=== PATIENT | female | born 1985 | race Caucasian/White ===

== ENCOUNTER 2018-12-04 05:50 | Day surgery (SDC) | payer OTHER ==
[~2018-12-04] VITALS: Ht 170.2 cm; Wt 93.9 kg
[~2018-12-04 05:50] MED LIST: AZITHROMYCIN250 MG PO; IBUPROFEN600 MG PO; KEFLEX500 MG PO; METHYLPREDNISOLO4 M1 PO; MICROGESTIN1 EAC1 PO; MOTRIN IB200 MG PO; NORCO 5-325 TA1 EACH PO; OXYCODONE HCL5 MG PO; PRENATAL VITAM1 EAC7 PO; PROAIR HFA8.5 GM INH; ZYRTEC10 MG PO
--- NOTE | 2018-12-04 07:53 | NUR ---
12/04/18 0753 Patricia Patton 0743 PT ARRIVED IN PACU SLEEPY WITH NO C/O'S. 0750 AT BEDSIDE TALKING TO PT.
--- NOTE | 2018-12-04 08:34 | NUR ---
HARD COPY PRESCRIPTION GIVEN TO SPOUSE. APPLESAUCE AND ICED WATER GIVEN. CALL LIGHT W/IN REACH. PATIENT DENIES ADD'L NEEDS @ THIS TIME.
--- NOTE | 2018-12-04 09:12 | NUR ---
PT IS AWAKE AND LOOKING AT PHONE. SHE REPORTS MILD CRAMPING, BUT DENIES NEEDING ANYTHING. SHE HAS TOLERATE WATER AND APPLE SAUCE. NO OTHER NEEDS AT THIS TIME.
--- NOTE | 2018-12-04 10:12 | NUR ---
JONATAN 0935: PT IS ASSISTED UP OUT OF BED TO THE BATHROOM. SHE IS ABLE TO VOID 150MLS OF BLOODY URINE. SHE INDICATES THAT SHE WOULD LIKE TO GO HOME AT THIS TIME. SHE IS EDUCATED ON HOW BEST TO DRESS HERSELF AND OPEN HER CURTAIN WHEN SHE IS READY.
--- NOTE | 2018-12-04 10:14 | NUR ---
PT IS GIVEN VERBAL DC INSTRUCTIONS WITH HER PRESENT. PT AND HER VERBALIZE UNDERSTANDING. SHE IS TAKEN TO VEHICLE IN , SHE IS ABLE TO TRANSFER HERSELF FROM TO CAR.
--- NOTE | 2018-12-04 11:24 | NUR ---
PT IS ALERT, ORIENTED AND SUPPORTED BY HER WIL. DIFFICULT TIME FOR BOTH OF THEM, GAVE COMFORT, MADE MYSELF AVAILABLE. PT REQUESTED PRAYER, WILL FOLLOW NEEDED
--- NOTE | 2018-12-14 16:11 | OR ---
[facility] [address] [place], [place] [address] Signed DATE OF OPERATION: 12/04/2018 SURGEON: Stas Amador MD Patient of Dr. Amador. PREOPERATIVE DIAGNOSIS: Missed . POSTOPERATIVE DIAGNOSIS: Missed . PROCEDURE PERFORMED: Suction D and C. ANESTHESIA: General. ESTIMATED BLOOD LOSS: 20 mL. COMPLICATIONS: None. DRAINS: None. FINDINGS: Cervix is soft, thick, and closed. Uterus is soft, approximately 9 weeks size. No adnexal masses. No active vaginal bleeding. There was moderate amount of normal-appearing products of conception within the uterine cavity. DESCRIPTION: The patient was brought into the operating room and placed in supine position. After adequate general anesthesia was obtained, she was placed in a dorsal lithotomy position, prepped, and draped in usual sterile fashion. Weighted speculum was placed in the vagina and the anterior lip of the cervix grasped with an Allis clamp. Uterine cavity was sounded to 10 cm and then cervix easily dilated with Yoruba dilators up to #10 dilator. A #9 curved suction tip was attached to the suction machine and the suction tested. The tip was then easily placed through the cervix into the fundus and scraped Electronically Signed By: STAS AMADOR MD 12/14/18 1611 PATIENT NAME: DENISA HYATT OPERATIVE REPORT DATE OF : 89 REPORT #: [id number] PHYSICIAN: STAS AMADOR MD PCP: RUFINO BEST MD REPORT IS CONFIDENTIAL AND NOT TO BE RELEASED WITHOUT AUTHORIZATION [facility] [address] [place], [place] [address] Signed in 360 degree fashion removing moderate amount of normal-appearing tissue. The normal feel of empty uterus was noted throughout. No additional tissue was removed. The curette was removed. The cervix observed and noted to have good hemostasis. At this point, all instruments were removed from the vagina. The uterus was repalpated, noted to be much smaller and more firm. Cervix was again observed and noted to have minimal bleeding. At this point, the procedure was terminated. The patient tolerated the procedure well and went to recovery room in good condition. Sponge and instrument count was correct at the end of procedure. Uterine curettings were sent to Pathology for identification. Stas Amador MD MJB/MODL /[id number] cc: Rufino Best MD Copies: RUFINO BEST MD ~ Electronically Signed By: STAS AMADOR MD 12/14/18 1611 PATIENT NAME: DEYANIRA HYATTJESSENIA FABIAN OPERATIVE REPORT DATE OF : 89 REPORT #: [id number] PHYSICIAN: STAS AMADOR MD PCP: RUFINO BEST MD REPORT IS CONFIDENTIAL AND NOT TO BE RELEASED WITHOUT AUTHORIZATION
== END 2018-12-04 09:55 | disposition home or self-care (01) ==
LOC: DS 05:50
PROVIDERS: General Practice
PROC: 10D17Z9 Manual Extraction of Products of Conception, Retained, Via Natural or Artificial Opening (ICD-10-PCS; principal; 2018-12-04 06:45)
DX: O02.1 Missed abortion (principal); Z79.899 Other long term (current) drug therapy
CPT/HCPCS: 00952; J1100; J1885; J2250; J2405; J2590; J2704; J3010; J7120

== ENCOUNTER 2020-03-29 15:26 | Emergency (ER) | payer BC ==
[~2020-03-29] VITALS: Ht 170.2 cm; Wt 88.5 kg
--- OUTSIDE RECORDS SUMMARY | ~2020-03-29 | XMS | Encounter Summary ---
Demographics + + + | Address | [address] | | | [place] [address] | + + + | Home Phone | | + + + | Preferred Language | Unknown | + + + | Marital Status | Single | + + + | Mosque Affiliation | Unknown | + + + | Race | Unknown | + + + | Ethnic Group | Unknown | + + + Author + + + | Author | [facility] | | | and [place] | + + + | Organization | [facility] | | | and [place] | + + + | Address | Unknown | + + + | Phone | Unavailable | + + + Support + + +---------+ + | Name | Relationship | Address | Phone | + + +---------+ + | Ko Ding | ECON | Unknown | | + + +---------+ + Care Team Providers + +------+ + | Care Health And Wellness Advisor Name | Role | Phone | + +------+ + PCP | Unavailable | + +------+ + Encounter Details +--------+ + + + + | Date | Type | Department | Care Team | Description | +--------+ + + + + | 06/14/ | Hospital | [facility] | Howie Girard, | | | 2010 | Encounter | MED CTR XRAY [address] | PA-C [address] | | | | | [place] | [facility] [address] [place] | | | | | [place] [address] | [place] [address] | | | | | [phone] | [phone] | | | | | | | | +--------+ + + + + Social History + +-------+ +--------+------+ | Tobacco Use | Types | Packs/Day | Years | Date | | | | | Used | | + +-------+ +--------+------+ | Never Assessed | | | | | + +-------+ +--------+------+ + + + | Sex Assigned at | Date Recorded | | | | + + + | Not on file | | + + + + + + + | Job Start Date | Occupation | Industry | + + + + | Not on file | Not on file | Not on file | + + + + + + + + | Travel History | Travel Start | Travel End | + + + + + + | No recent travel history available. | + + documented as of this encounter Medications at Time of Discharge + + + +---------+ + + | Medication | Sig | Dispensed | Refills | Start | End Date | | | | | | Date | | + + + +---------+ + + | ibuprofen | Take 600 mg by mouth | | 0 | 07/08/20 | | | (ADVIL,MOTRIN) 600 | 3 times daily as | | | 10 | | | MG tablet | needed. | | | | | + + + +---------+ + + documented as of this encounter Plan of Treatment Not on filedocumented as of this encounter Procedures + +--------+ + + + | Procedure Name | Priori | Date/Time | Associated Diagnosis | Comments | | | ty | | | | + +--------+ + + + | MRI KNEE RIGHT WO | | 06/14/2011 | | Results for this | | CONTRAST | | 9:05 AM | | procedure are in the | | | | PDT | | results section. | + +--------+ + + + documented in this encounter Results MRI Knee Right wo Contrast (06/14/2011 9:05 AM PDT) + + | Specimen | + + | | + + + + + | Narrative | Performed At | + + + | [facility] Diagnostic Imaging Department | [facility] | | [address] | [facility] | | RIGHT KNEE, 06/14/2011 | DIA IMG | | CLINICAL HISTORY: RIGHT KNEE PAIN. NO INJURY. COMPARISON: | | | 06/10/2011 right knee radiographs. TECHNIQUE: Multiplanar | | | multisequence MRI imaging of the right knee without contrast. | | | FINDINGS: The anterior and posterior cruciate ligaments are intact | | | and unremarkable. The medial and lateral menisci are normal in | | | signal and morphology. The lateral stabilizing structures are intact | | | and unremarkable. The medial stabilizing structures are intact | | | and unremarkable. The visible portio ns of the quadriceps tendon | | | and the patellar tendon are intact and unremarkable. There is an | | | area of fissuring, near full thickness, in the medial facet of the | | | patellar cartilage. T here is sparing of the trochlear cartilage. | | | There is a suggestion of mild trochlear dysplasia withou t abnormal | | | positioning of the patella at this time. Cartilaginous surfaces in | | | the medial and lateral femorotibial compartments are more normal. | | | There is a small joint effusion. There is no significan t | | | popliteal cyst. Marrow signal is normal. Muscles are without | | | evidence of atrophy or edema. IMPRESSION: 1. HIGH GRADE OR NEAR | | | FULL THICKNESS FISSURING IN THE LATERAL FACET AT THE PATELLAR | | | ARTICULAR SURFACE . 2. SUGGESTION OF MILD TROCHLEAR DYSPLASIA. | | | 3. SMALL JOINT EFFUSION. Dictated Date/Time: 06/14/2011 | | | 10:16 Transcribed Date/Time: 06/14/2011 12:[address] Security: | | | <Electronically Signed by Doroteo Belle MD> 06/14/11 1731 | | + + + + + | Procedure Note | + + | Stanley Jones Conversion - 12/27/2013 3:27 PM [facility] | | Diagnostic Imaging Department [address] | | RIGHT KNEE, 06/14/2011 CLINICAL HISTORY: RIGHT KNEE | | PAIN. NO INJURY. COMPARISON: 06/10/2011 right knee radiographs. TECHNIQUE: | | Multiplanar multisequence MRI imaging of the right knee without contrast. FINDINGS: The | | anterior and posterior cruciate ligaments are intact and unremarkable. The medial and | | lateral menisci are normal in signal and morphology. The lateral stabilizing structures | | are intact and unremarkable. The medial stabilizing structures are intact and | | unremarkable. The visible portions of the quadriceps tendon and the patellar tendon are | | intact and unremarkable. There is an area of fissuring, near full thickness, in the | | medial facet of the patellar cartilage. There is sparing of the trochlear cartilage. | | There is a suggestion of mild trochlear dysplasia without abnormal positioning of the | | patella at this time. Cartilaginous surfaces in the medial and lateral femorotibial | | compartments are more normal. There is a small joint effusion. There is no significant | | popliteal cyst. Marrow signal is normal. Muscles are without evidence of atrophy or | | edema. IMPRESSION: 1. HIGH GRADE OR NEAR FULL THICKNESS FISSURING IN THE LATERAL FACET | | AT THE PATELLAR ARTICULAR SURFACE. 2. SUGGESTION OF MILD TROCHLEAR DYSPLASIA. 3. SMALL | | JOINT EFFUSION. Dictated Date/Time: 06/14/2011 10:16Transcribed Date/Time: 06/14/2011 | | 12:58Transcriptionist: <Electronically Signed by Doroteo Belle MD> 06/14/11 | | 1731 | |here is sparing of the trochlear cartilage. There is a suggestion of mild trochlear dyspla rolando withou | |t abnormal positioning of the patella at this time. Cartilaginous surfaces in the medial a nd lateral | | femorotibial compartments are more normal. There is a small joint effusion. There is no significan | |t popliteal cyst. Marrow signal is normal. Muscles are without evidence of atrophy or celeste ma. | | | |IMPRESSION: | |1. HIGH GRADE OR NEAR FULL THICKNESS FISSURING IN THE LATERAL FACET AT THE PATELLAR ARTICUL AR SURFACE | |. | | | |2. SUGGESTION OF MILD TROCHLEAR DYSPLASIA. | | | |3. SMALL JOINT EFFUSION. | | | |Dictated Date/Time: 06/14/2011 10:16 | |Transcribed Date/Time: 06/14/2011 12:58 | |Master Deputy [address] Court Security: | |<Electronically Signed by Doroteo Belle MD> 06/14/11 1731 | + + + +---------+ + + | Performing | Address | City/State/Zipcode | Phone Number | | Organization | | | | + +---------+ + + | [place] | | | | | [facility] [place] | | | | + +---------+ + + documented in this encounter Visit Diagnoses Not on filedocumented in this encounter"
--- OUTSIDE RECORDS SUMMARY | ~2020-03-29 | XMS | Encounter Summary ---
Demographics + + + | Address | [address] | | | [place] [address] | + + + | Home Phone | | + + + | Preferred Language | Unknown | + + + | Marital Status | Single | + + + | Tenriism Affiliation | Unknown | + + + | Race | Unknown | + + + | Ethnic Group | Unknown | + + + Author + + + | Author | [facility] | | | and [place] | + + + | Organization | [facility] | | | and [place] | [...] Team Providers + +------+ + | Care Parts Sales Advisor Name | Role | Phone | + +------+ + PCP | Unavailable | + +------+ + Encounter Details +--------+ + + + + | Date | Type | Department | Care Team | Description | +--------+ + + + + | 10/25/ | Hospital | [facility] | [place] | | | 2010 | Encounter | MED CTR LABORATORY | MD [address] [facility] | | | | | [address] | [place] | | | | | [place] | [id number] | | | | | [address] | | | | | | [phone] | | | +--------+ + + + [...] | + +--------+ + + + | CBC WITH | Routin | 10/25/2011 | | Results for this | | DIFFERENTIAL | e | 1:27 PM | | procedure are in the | | | | PST | | results section. | + +--------+ + + + | COMPREHENSIVE | Routin | 10/25/2011 | | Results for this | | METABOLIC PANEL | e | 1:27 PM | | procedure are in the | | | | PST | | results section. | + +--------+ + + + | URINALYSIS, REFLEX | Routin | 10/25/2011 | | Results for this | | MICROSCOPIC AND/OR | e | 1:24 PM | | procedure are in the | | CULTURE | | PST | | results section. | + +--------+ + + + documented in this encounter Results Comprehensive Metabolic Panel (10/25/2011 1:27 PM PST) + + + + + + | Component | Value | Ref Range | Performed | Pathologist | | | | | At | Signature | + + + + + + | Glucose | 84 | 70 - 109 mg/dL | [facility] | | | | | | [facility] | | | | | [facility] | | | | | | C[facility] - | | | | | | LABORATORY | | + + + + + + | Calcium | 9.3 | 8.3 - 10.5 | [facility] | | | | | mg/dL | [facility] | | | | | | [facility] | | | | | | CENTER - | | | | | | LABORATORY | | + + + + + + | Alkaline | 55 | 40 - 110 IU/L | [facility] | | | Phosphatase | | | [facility] | | | | | | [facility] | | | | | | CENTER - | | | | | | LABORATORY | | + + + + + + | AST | 23 | 10 - 42 IU/L | [facility] | | | | | | [facility] | | | | | | [facility] | | | | | | CENTER - | | | | | | LABORATORY | | + + + + + + | ALT | 16 | 6 - 45 IU/L | [facility] | | | | | | [facility] | | | | | | [facility]ICAL | | | | | | CENTER - | | | | | | LABORATORY | | + + + + + + | Bilirubin | 0.8 | 0.2 - 1.0 mg/dL | [facility] | | | Total | | | [facility] | | | | | | MEDICAL | | | | | | CENTER - | | | | | | LABORATORY | | + + + + + + | Total | 6.7 | 6.0 - 7.8 gm/dL | [facility] | | | Protein | | | [facility] | | | | | | MEDICAL | | | | | | CENTER - | | | | | | LABORATORY | | + + + + + + | Albumin | 4.3 | 3.2 - 5.0 gm/dL | [facility] | | | | | | [facility] | | | | | | [facility]ICAL | | | | | | CENTER - | | | | | | LABORATORY | | + + + + + + | BUN | 10 | 7 - 18 mg/dL | [facility] | | | | | | [facility] | | | | | | [facility] | | | | | | CENTER - | | | | | | LABORATORY | | + + + + + + | Creatinine | 0.88 | 0.60 - 1.30 | [facility] | | | | | mg/dL | [facility] | | | | | | MEDICAL | | | | | | CENTER - | | | | | | LABORATORY | | + + + + + + | Estimated | >60Comment: For | >60 mL/min/A | [facility] | | | GFR | -Americans, | | [facility] | | | | please multiply the | | MEDICAL | | | | result by 1.210 | | CENTER - | | | | This is an estimated | | LABORATORY | | | | GFR and is based on a | | | | | | standard adult | | | | | | body mass (A=1.73m2) and | | | | | | serum creatinine | | | | + + + + + + | BUN/Creatin | 11.4 (L) | 12 - 20 | [facility] | | | ine Ratio | | | [facility] | | | | | | MEDICAL | | | | | | CENTER - | | | | | | LABORATORY | | + + + + + + | Na | 137 | 136 - 149 mEq/L | [facility] | | | | | | [facility] | | | | | | [facility]ICAL | | | | | | CENTER - | | | | | | LABORATORY | | + + + + + + | K | 4.0 | 3.5 - 5.1 mEq/l | [facility] | | | | | | [facility] | | | | | | [facility]ICAL | | | | | | CENTER - | | | | | | LABORATORY | | + + + + + + | Cl | 107 | 98 - 109 mEq/l | [facility] | | | | | | [facility] | | | | | | [facility] | | | | | | CENTER - | | | | | | LABORATORY | | + + + + + + | CO2 | 24 | 24 - 31 mEq/L | [facility] | | | | | | [facility] | | | | | | [facility]ICAL | | | | | | CENTER - | | | | | | LABORATORY | | + + + + + + | Anion Gap | 10.0 | 6.0 - 17.0 | [facility] | | | | | | [facility] | | | | | | [facility]ICAL | | | | | | CENTER - | | | | | | LABORATORY | | + + + + + + + + | Specimen | + + | | + + + + + + + | Performing | Address | City/State/Zipcode | Phone Number | | Organization | | | | + + + + + | [facility] | [address] | [place], [place] | [phone] | | [facility] | | [address] | | | - LABORATORY | | | | + + + + + | [facility] | [address] | [place], [place] | | | [facility] | | [address], [facility] | | | - LABORATORY | | | | + + + + + CBC with Differential (10/25/2011 1:27 PM PST) + +-------+ + + + | Component | Value | Ref Range | Performed | Pathologist | | | | | At | Signature | + +-------+ + + + | WBC | 9.2 | 4.0 - 11.0 K/uL | [facility] | | | | | | [facility] | | | | | | MEDICAL | | | | | | CENTER - | | | | | | LABORATORY | | + +-------+ + + + | RBC | 4.72 | 3.70 - 5.20 | [facility] | | | | | M/uL | [facility] | | | | | | [facility] | | | | | | CENTER - | | | | | | LABORATORY | | + +-------+ + + + | Hemoglobin | 14.3 | 11.5 - 16.0 | [facility] | | | | | gm/dL | [facility] | | | | | | [facility] | | | | | | CENTER - | | | | | | LABORATORY | | + +-------+ + + + | Hematocrit | 43.4 | 34.0 - 47.0 % | [facility] | | | | | | [facility] | | | | | | MEDICAL | | | | | | CENTER - | | | | | | LABORATORY | | + +-------+ + + + | MCV | 91.9 | 83.0 - 101.0 fL | [facility] | | | | | | [facility] | | | | | | MEDICAL | | | | | | CENTER - | | | | | | LABORATORY | | + +-------+ + + + | MCH | 30.4 | 28.0 - 35.0 pg | [facility] | | | | | | [facility] | | | | | | MEDICAL | | | | | | CENTER - | | | | | | LABORATORY | | + +-------+ + + + | MCHC | 33.1 | 32.0 - 36.0 | [facility] | | | | | g/dL | [facility] | | | | | | MEDICAL | | | | | | CENTER - | | | | | | LABORATORY | | + +-------+ + + + | RDW-CV | 12.6 | <15.0 % | [facility] | | | | | | [facility] | | | | | | [facility]ICAL | | | | | | CENTER - | | | | | | LABORATORY | | + +-------+ + + + | Platelet | 245 | 140 - 440 K/uL | [facility] | | | Count | | | [facility] | | | | | | MEDICAL | | | | | | CENTER - | | | | | | LABORATORY | | + +-------+ + + + | % | 69.1 | 45 - 75 % | [facility] | | | Neutrophils | | | [facility] | | | | | | MEDICAL | | | | | | CENTER - | | | | | | LABORATORY | | + +-------+ + + + | % | 24.7 | 20 - 45 % | [facility] | | | Lymphocytes | | | [facility] | | | | | | MEDICAL | | | | | | CENTER - | | | | | | LABORATORY | | + +-------+ + + + | % Monocytes | 4.6 | 4 - 12 % | [facility] | | | | | | [facility] | | | | | | MEDICAL | | | | | | CENTER - | | | | | | LABORATORY | | + +-------+ + + + | % | 0.7 | 0 - 5 % | [facility] | | | Eosinophils | | | [facility] | | | | | | MEDICAL | | | | | | CENTER - | | | | | | LABORATORY | | + +-------+ + + + | % Basophils | 0.9 | 0 - 1 % | [facility] | | | | | | [facility] | | | | | | [facility] | | | | | | CENTER - | | | | | | LABORATORY | | + +-------+ + + + | Absolute | 6.3 | 1.5 - 6.6 K/uL | [facility] | | | Neutrophils | | | [facility] | | | | | | MEDICAL | | | | | | CENTER - | | | | | | LABORATORY | | + +-------+ + + + | Absolute | 2.3 | 0.6 - 3.2 K/uL | [facility] | | | Lymphocytes | | | [facility] | | | | | | MEDICAL | | | | | | CENTER - | | | | | | LABORATORY | | + +-------+ + + + | Absolute | 0.4 | 0.0 - 1.0 K/uL | [facility] | | | Monocytes | | | [facility] | | | | | | MEDICAL | | | | | | CENTER - | | | | | | LABORATORY | | + +-------+ + + + | Absolute | 0.1 | 0.0 - 0.4 K/uL | [facility] | | | Eosinophils | | | [facility] | | | | | | MEDICAL | | | | | | CENTER - | | | | | | LABORATORY | | + +-------+ + + + | Absolute | 0.1 | 0.0 - 0.1 K/uL | [facility] | | | Basophils | | | [facility] | | | | | | MEDICAL | | | | | | CENTER - | | | | | | LABORATORY | | + +-------+ + + + + + | Specimen | + + | | + + + + + + + | Performing | Address | City/State/Zipcode | Phone Number | | Organization | | | | + + + + + | [facility] | [address] | [place], [place] | [phone] | | [facility] | | [address] | | | - LABORATORY | | | | + + + + + | [facility] | [address] | [place], [place] | | | [facility] | | [address] | | | - LABORATORY | | | | + + + + + Urinalysis, Reflex Microscopic and/or Culture (10/25/2011 1:24 PM PST) + + + + + + | Component | Value | Ref Range | Performed | Pathologist | | | | | At | Signature | + + + + + + | COLLECTION | VOID | | [facility] | | | METHOD [facility] | | | [facility] | | | | | | MEDICAL | | | | | | CENTER - | | | | | | LABORATORY | | + + + + + + | Color, | YELLOW | | [facility] | | | Urine | | | [facility] | | | | | | MEDICAL | | | | | | CENTER - | | | | | | LABORATORY | | + + + + + + | Clarity | CLEAR | | [facility] | | | | | | [facility] | | | | | | MEDICAL | | | | | | CENTER - | | | | | | LABORATORY | | + + + + + + | Glucose, | NEGATIVE | NEGATIVE mg/dL | [facility] | | | Urine | | | [facility] | | | | | | MEDICAL | | | | | | CENTER - | | | | | | LABORATORY | | + + + + + + | Bilirubin, | NEGATIVE | NEGATIVE | [facility] | | | Urine | | | [facility] | | | | | | MEDICAL | | | | | | CENTER - | | | | | | LABORATORY | | + + + + + + | Ketones, | TRACE | NEGATIVE | [facility] | | | Urine | | | [facility] | | | | | | MEDICAL | | | | | | CENTER - | | | | | | LABORATORY | | + + + + + + | Specific | 1.020 | 1.001 - 1.030 | [facility] | | | [place], | | | [facility] | | | Urine | | | MEDICAL | | | | | | CENTER - | | | | | | LABORATORY | | + + + + + + | Blood, | NEGATIVE | NEGATIVE | [facility] | | | Urine | | | [facility] | | | | | | MEDICAL | | | | | | CENTER - | | | | | | LABORATORY | | + + + + + + | pH, Urine | 6.5 | 5.0 - 8.0 | [facility] | | | | | | [facility] | | | | | | MEDICAL | | | | | | CENTER - | | | | | | LABORATORY | | + + + + + + | Protein, | NEGATIVE | NEGATIVE mg/dL | [facility] | | | Urine | | | [facility] | | | | | | MEDICAL | | | | | | CENTER - | | | | | | LABORATORY | | + + + + + + | Urobilinoge | NORMAL | NORMAL EU/dL | [facility] | | | n, Urine | | | [facility] | | | | | | MEDICAL | | | | | | CENTER - | | | | | | LABORATORY | | + + + + + + | Nitrite, | NEGATIVE | NEGATIVE | [facility] | | | Urine | | | [facility] | | | | | | MEDICAL | | | | | | CENTER - | | | | | | LABORATORY | | + + + + + + | Leukocyte | NEGATIVE | NEGATIVE | [facility] | | | Esterase, | | | [facility] | | | Urine | | | MEDICAL | | | | | | CENTER - | | | | | | LABORATORY | | + + + + + + | MICROSCOPIC | NO | | [facility] | | | ? | | | [facility] | | | | | | MEDICAL | | | | | | CENTER - | | | | | | LABORATORY | | + + + + + + + + | Specimen | + + | | + + + + + + + | Performing | Address | City/State/Zipcode | Phone Number | | Organization | | | | + + + + + | [facility] | [address] | [place] | [phone] | | [facility] | | [address] | | | - LABORATORY | | | | + + + + + | [facility] | [address] | [place], [place] | | | [facility] | | [address] | | | - LABORATORY | | | | + + + + + documented in this encounter Visit Diagnoses Not on filedocumented in this encounter"
--- OUTSIDE RECORDS SUMMARY | ~2020-03-29 | XMS | Clinical Summary ---
Demographics + + + | Address | [address] | | | [place] [address] | + + + | Home Phone | | + + + | Preferred Language | Unknown | + + + | Marital Status | | + + + | Faith Affiliation | Unknown | + + + | Race | Unknown | + + + | Ethnic Group | Unknown | + + + Author + + + | Author | [facility] (Historical as of | | | 07-06-19) | + + + | Organization | [facility] (Historical as of | | | 07-06-19) | + + + | Address | Unknown | + + + | Phone | Unavailable | + + + Support + + +---------+ + | Name | Relationship | Address | Phone | + + +---------+ + | Melonie Babcock | ECON | Unknown | | + + +---------+ + Care Team Providers + +------+ + | Care Farm Mechanic Apprentice Name | Role | Phone | + +------+ + | Tashi Best MD | PP | | + +------+ + Allergies Not on File Current Medications Not on file Active Problems + + + | Problem | Noted Date | + + + | Right shoulder pain | 02/21/2019 | + + + Social History + +-------+ [...] on file | | + + + Plan of Treatment + + + + + | Health Maintenance | Due Date | Last Done | Comments | + + + + + | Vaccine: | | | | | Dtap/Tdap/Td (1 - | 7 | | | | Tdap) | | | | + + + + + | Cervical Cancer | | | | | Screening (Pap) | 8 | | | + + + + + | Vaccine: Influenza | | | | | (Season Ended) | 0 | | | + + + + + Results Not on filefrom Last 3 Months Insurance + +--------+ +------+-------+---------+ | Payer | Benefi | Subscriber | Type | Phone | Address | | | t Plan | ID | | | | | | / | | | | | | | Group | | | | | + +--------+ +------+-------+---------+ | [employer] | ODS | [id number] | | | | | | HEALTH | | | | | | | PLAN | | | | | + +--------+ +------+-------+---------+ + +--------+ +--------+ + + | Guarantor Name | Accoun | Relation to | Date | Phone | Billing Address | | | t Type | Patient | of | | | | | | | | | | + +--------+ +--------+ + + | CONCETTA BABCOCK | Person | Self | [birth year] | Home: | [facility] | | | al/Toni | | 1985 | [phone] | [place] [address] | | | galina | | | [phone] | | + +--------+ +--------+ + +"
--- OUTSIDE RECORDS SUMMARY | ~2020-03-29 | XMS | Encounter Summary ---
Demographics + + + | Address | [address] | | | [place] [address] | + + + | Home Phone | | + + + | Preferred Language | Unknown | + + + | Marital Status | Single | + + + | Yazidism Affiliation | Unknown | + + + | Race | Unknown | + + + | Ethnic Group | Unknown | + + + Author + + + | Author | [facility] | | | and Jorgeana | + + + | Organization | [facility] | | | and Jorgeana [...] Team Providers + +------+ + | Care Staff Reporter Name | Role | Phone | + +------+ + PCP | Unavailable | + +------+ + Encounter Details +--------+ + + + + | Date | Type | Department | Care Team | Description | +--------+ + + + + | 06/10/ | Hospital | [facility] | Howie Girard, | | | 2010 | Encounter | MED CTR XRAY [address] | PA-C [address] | | | | | [place] | [facility] [address] [place] | | | | | [place] [address] | [place] [address] | | | | | [phone] | [phone] | | | | | | | [...] | + +--------+ + + + | XR KNEE RIGHT 1 - 2 | | 06/10/2011 | | Results for this | | VW | | 9:06 AM | | procedure are in the | | | | PDT | | results section. | + +--------+ + + + documented in this encounter Results XR Knee Right 1 - 2 Vw (06/10/2011 9:06 AM PDT) + + | Specimen | + + | | + + + + + | Narrative | Performed At | + + + | [facility] Diagnostic Imaging Department | [facility] | | [address] [facility] | [facility] | | RIGHT KNEE CLINICAL HISTORY: | DIAG IMG | | PAIN. FINDINGS: AP and lateral views of the right knee show | | | no fracture or bony destructive change. The j oint relationships | | | are normal. Subchondral bone appears normal. No effusion or soft | | | tissue changes are seen. IMPRESSION: 1. NEGATIVE STUDY OF | | | THE KNEE. Dictated Date/Time: 06/13/2011 15:48 Transcribed | | | Date/Time: 06/13/2011 15:53 Supervisor Sewing Department: | | | <Electronically Signed by Heber Eddy MD> 06/13/11 [id number] | | + + + + + | Procedure Note | + + | Robert, Rad Conversion - 12/27/2013 3:26 PM [facility] | | Diagnostic Imaging Department [address] [place] [address] | | RIGHT KNEE CLINICAL HISTORY: PAIN. FINDINGS: AP and | | lateral views of the right knee show no fracture or bony destructive change. The joint | | relationships are normal. Subchondral bone appears normal. No effusion or soft tissue | | changes are seen. IMPRESSION: 1. NEGATIVE STUDY OF THE KNEE. Dictated Date/Time: | | 06/13/2011 15:48Transcribed Date/Time: 06/13/2011 15:53Transcriptionist: | | <Electronically Signed by Heber Eddy MD> 06/13/11 5422 | |CLINICAL HISTORY: PAIN. | | | |FINDINGS: AP and lateral views of the right knee show no fracture or bony destructive lopze ge. The j | |oint relationships are normal. Subchondral bone appears normal. No effusion or soft tissu e changes | |are seen. | | | |IMPRESSION: | |1. NEGATIVE STUDY OF THE KNEE. | | | |Dictated Date/Time: 06/13/2011 15:48 | |Transcribed Date/Time: 06/13/2011 15:53 | |Supervisor Sewing Department: | |<Electronically Signed by Heber Eddy MD> 06/13/11 1626 | + + + +---------+ + + [...]
--- OUTSIDE RECORDS SUMMARY | ~2020-03-29 | XMS | Encounter Summary ---
Demographics + + + | Address | [address] | | | [place] [address] | + + + | Home Phone | | + + + | Preferred Language | Unknown | + + + | Marital Status | Single | + + + | Christian Affiliation | Unknown | + + + | Race | Unknown | + + + | Ethnic Group | Unknown | + + + Author + + + | Author | [facility] | | | and Jorgeana | + + + | Organization | [facility] | | | and Jorge[place] [...] Team Providers + +------+ + | Care Uranium Processing Supervisor Name | Role | Phone | + +------+ + PCP | Unavailable | + +------+ + Encounter Details +--------+ + + + + | Date | Type | Department | Care Team | Description | +--------+ + + + + | 06/14/ | Hospital | [facility] | Howie Girard, | | | 2010 | Encounter | MED CTR XRAY [address] | PA-C [address] | | | | | [place] | [facility] [address] [place] | | | | | [place] [address] | [place] [address] | | | | | [phone] | [phone] | | | | | | | [...] Performed At | + + + | [facility] Diagnostic Imaging Department | [facility] | | [address] [facility] | [facility] | | RIGHT KNEE, 06/14/2011 | DIA [...] | | 10:16 Transcribed Date/Time: 06/14/2011 12:58 Testing Specialist: | | | <Electronically Signed by Doroteo Belle MD> 06/14/11 1731 | | + + + + + | Procedure Note | + + | Stanley Jones Conversion - 12/27/2013 3:27 PM [facility] | | Diagnostic Imaging Department [address] [facility] | | RIGHT KNEE, 06/14/2011 CLINICAL HISTORY: [...] 10:16 | |Transcribed Date/Time: 06/14/2011 12:58 | |Testing Specialist: | |<Electronically Signed by Doroteo Belle MD> [...]
--- OUTSIDE RECORDS SUMMARY | ~2020-03-29 | XMS | Encounter Summary ---
Demographics + + + | Address | [address] | | | [place] [address] | + + + | Home Phone | | + + + | Preferred Language | Unknown | + + + | Marital Status | Single | + + + | Gnosticist Affiliation | Unknown | + + + | Race | Unknown | + + + | Ethnic Group | Unknown | + + + Author + + + | Author | [facility] | | | and [place] | + + + | Organization | [facility] | | | and [place] [...] Team Providers + +------+ + | Care Boilermaker Central Steam Plant Name | Role | Phone | + +------+ + PCP | Unavailable | + +------+ + Encounter Details +--------+ + + + + | Date | Type | Department | Care Team | Description | +--------+ + + + + | 10/26/ | Hospital | [facility] | [place] | | | 2010 | Encounter | MED CTR MP INTRA OP | [address] [facility] | | | | | [address] | [place] | | | | | [place] | [id number] | | | | | [address] | | | | | | [phone] | | | +--------+ + + + [...] Not on filedocumented as of this encounter Visit Diagnoses Not on filedocumented in this encounter"
--- OUTSIDE RECORDS SUMMARY | ~2020-03-29 | XMS | Encounter Summary ---
Demographics + + + | Address | [address] | | | [place] [address] | + + + | Home Phone | | + + + | Preferred Language | Unknown | + + + | Marital Status | Single | + + + | Congregational Affiliation | Unknown | + + + | Race | Unknown | + + + | Ethnic Group | Unknown | + + + Author + + + | Author | [facility] | | | and [place]ana | + + + | Organization | [facility] | | | and [...] Team Providers + +------+ + | Care Pipeline Operator Name | Role | Phone | + +------+ + PCP | Unavailable | + +------+ + Encounter Details +--------+ + + + + | Date | Type | Department | Care Team | Description | +--------+ + + + + | 06/30/ | Hospital | [facility] | Howie Girard, | | | 2010 - | Encounter | MED CTR OP REHAB | PA-C [address] | | | | | [address] [place] | [facility] [address] | | | 07/20/ | | [place] [address] | [place] [address] | | | 2010 | | [phone] | [phone] | | | | | | | [...]
--- OUTSIDE RECORDS SUMMARY | ~2020-03-29 | XMS | Encounter Summary ---
Demographics + + + | Address | [address] | | | [place] [address] | + + + | Home Phone | | + + + | Preferred Language | Unknown | + + + | Marital Status | Single | + + + | Samaritan Affiliation | Unknown | + + + | Race | Unknown | + + + | Ethnic Group | Unknown | + + + Author + + + | Author | [facility] | | | and [place] | + + + | Organization | [facility] | | | and [...] Team Providers + +------+ + | Care Floor Trader Name | Role | Phone | + +------+ + PCP | Unavailable | + +------+ + Encounter Details +--------+ + + + + | Date | Type | Department | Care Team | Description | +--------+ + + + + | 08/02/ | Abstract | [facility] | DATA MIGRATION [facility] | | | 2011 | | Conversion Location | SR | | | | | [address] | | | | | | [place], [place] | | | | | | [address] | | | | | | [phone] | | | +--------+ + + + [...] + + documented as of this encounter Last Filed Vital Signs + + + + + | Vital Sign | Reading | Time Taken | Comments | + + + + + | Blood Pressure | 126/78 | 10/25/2011 12:00 AM | | | | | PST | | + + + + + | Pulse | - | - | | + + + + + | Temperature | - | - | | + + + + + | Respiratory Rate | - | - | | + + + + + | Oxygen Saturation | - | - | | + + + + + | Inhaled Oxygen | - | - | | | Concentration | | | | + + + + + | Weight | 68 kg (150 lb) | 10/25/2011 12:00 AM | | | | | PST | | + + + + + | Height | 167.6 cm (5' 6") | 06/01/2010 12:00 AM | | | | | PDT | | + + + + + | Body Mass Index | 24.21 | 06/01/2010 12:00 AM | | | | | PDT | | + + + + + documented in this encounter Plan of Treatment Not on filedocumented as of this encounter Visit Diagnoses Not on filedocumented in this encounter
--- OUTSIDE RECORDS SUMMARY | ~2020-03-29 | XMS | Encounter Summary ---
Demographics + + + | Address | [address] | | | [place] [address] | + + + | Home Phone | | + + + | Preferred Language | Unknown | + + + | Marital Status | Single | + + + | Religion Affiliation | Unknown | + + + | Race | Unknown | + + + | Ethnic Group | Unknown | + + + Author + + + | Author | [facility] | | | and [place] | + + + | Organization | [facility] | | | and [...] Team Providers + +------+ + | Care Volleyball Assistant Coach Name | Role | Phone | + +------+ + PCP | Unavailable | + +------+ + Encounter Details +--------+ + + + + | Date | Type | Department | Care Team | Description | +--------+ + + + + | 06/10/ | Hospital | [facility] | Howie Girard, | | | 2010 | Encounter | MED CTR XRAY [address] | PA-C [address] | | | | | [place] | [facility] [address] [place] | | | | | [place] [address] | [place] [address] | | | | | [phone] | [phone] | | | | | | | [...] Performed At | + + + | [facility] Diagnostic Imaging Department | [facility] | | [address] [facility] | [facility] | | RIGHT KNEE CLINICAL [...] Transcribed | | | Date/Time: 06/13/2011 15:53 Grievance Manager: | | | <Electronically Signed by Heber Eddy MD> 06/13/11 8946 | | + + + + + | Procedure Note | + + | Robert, Rad Conversion - 12/27/2013 3:26 PM [facility] | | Diagnostic Imaging Department [address] [place] [address] | | RIGHT KNEE CLINICAL HISTORY: PAIN. [...] <Electronically Signed by Heber Eddy MD> 06/13/11 4481 | |CLINICAL HISTORY: PAIN. | | | |FINDINGS: AP and lateral views of the right knee show no fracture or bony destructive lopez ge. The j | |oint relationships are normal. Subchondral bone appears normal. No effusion or soft tissu e changes | |are seen. | | | |IMPRESSION: | |1. NEGATIVE STUDY OF THE KNEE. | | | |Dictated Date/Time: 06/13/2011 15:48 | |Transcribed Date/Time: 06/13/2011 15:53 | |Grievance Manager: | |<Electronically Signed by Heber Eddy MD> [...]
--- OUTSIDE RECORDS SUMMARY | ~2020-03-29 | XMS | Encounter Summary ---
Demographics + + + | Address | [address] | | | [place] [address] | + + + | Home Phone | | + + + | Preferred Language | Unknown | + + + | Marital Status | Single | + + + | Shinto Affiliation | Unknown | + + + | Race | Unknown | + + + | Ethnic Group | Unknown | + + + Author + + + | Author | [facility] | | | and Jorgeana | + + + | Organization | [facility] | | | and Jorgeana | [...] Team Providers + +------+ + | Care Delivery Driver Name | Role | Phone | + +------+ + PCP | Unavailable | + +------+ + Encounter Details +--------+ + + + + | Date | Type | Department | Care Team | Description | +--------+ + + + + | 06/30/ | Hospital | [facility] | Howie Girard, | | | 2010 - | Encounter | MED CTR OP REHAB | PA-C [address] | | | | | [address] [place] | [facility] [address] | | | 07/20/ | | [place] [address] | [place] [address] | | | 2010 | | [phone] | [phone] | | | | | | | [...]
--- OUTSIDE RECORDS SUMMARY | ~2020-03-29 | XMS | Clinical Summary ---
Demographics + + + | Address | [address] | | | [place] [address] | + + + | Home Phone | | + + + | Preferred Language | Unknown | + + + | Marital Status | | + + + | Hindu Affiliation | Unknown | + + + | Race | Unknown | + + + | Ethnic Group | Unknown | + + + Author + + + | Author | [facility] (Historical as of | | | 07-06-19) | + + + | Organization | [facility] [employer] [facility] (Historical as of | | | 07-06-19) [...] Team Providers + +------+ + | Care Dispatch Specialist Name | Role | Phone | + [...] | [employer] | ODS | [id number] | | | | | | HEALTH [...] | Self | [birth year] | Home: | [facility] | | | al/[place]oni | | 1985 | [phone] | [place] [address] | | | [place] | | | [address] | | + +--------+ +--------+ + +"
--- OUTSIDE RECORDS SUMMARY | ~2020-03-29 | XMS | Encounter Summary ---
Demographics + + + | Address | [address] | | | [place] [address] | + + + | Home Phone | | + + + | Preferred Language | Unknown | + + + | Marital Status | Single | + + + | Presybeterian Affiliation | Unknown | + + + | Race | Unknown | + + + | Ethnic Group | Unknown | + + + Author + + + | Author | [facility] | | | and Jorgeana | + + + | Organization | [facility] | | | and [...] Team Providers + +------+ + | Care Learning And Development Specialist Name | Role | Phone | + +------+ + PCP | Unavailable | + +------+ + Encounter Details +--------+ + + + + | Date | Type | Department | Care Team | Description | +--------+ + + + + | 10/25/ | Hospital | [facility] | [place] | | | 2010 | Encounter | MED CTR LABORATORY | [address] [facility] | | | | | [address] | [place] | | | | | [place] | [id number] | | | | | [address] | | | | | | [phone] | | | +--------+ + + + [...] + | [facility] | [address] | [place], [place] | [phone] | | [facility] | | [address] | | | - LABORATORY | | | | + + + + + | [facility] | [address] | [place], [place] | | | [facility] | | [address], [facility] | | | - LABORATORY | [...] + | [facility] | [address] | [place], [place] | [phone] | | [facility] | | [address] | | | - LABORATORY | | | | + + + + + | [facility] | [address] | [place], [place] | | | [facility] | | [address] | | | - LABORATORY | | [...] | | Urine | | | [facility] | | | | | | MEDICAL [...] - 1.030 | [facility] | | | [place], | | | [facility] | | [...] [address] | [place] | [phone] | | [facility] | | [address] | | | - LABORATORY | | | | + + + + + | [facility] | [address] | [place], [place] | | | [facility] | | [address] | | | - LABORATORY | | | | + + + + + documented in this encounter Visit Diagnoses Not on filedocumented in this encounter"
--- OUTSIDE RECORDS SUMMARY | ~2020-03-29 | XMS | Clinical Summary ---
Demographics + + + | Address | [address] | | | [place] [address] | + + + | Home Phone | | + + + | Preferred Language | Unknown | + + + | Marital Status | Single | + + + | Temple Affiliation | Unknown | + + + | Race | Unknown | + + + | Ethnic Group | Unknown | + + + Author + + + | Author | [facility] | | | and [place] | + + + | Organization | [facility] | | | and [place] [...] Team Providers + +------+ + | Care Butadiene Converter Helper Name | Role | Phone | + +------+ + | Tashi Best MD | PCP | | + +------+ + Allergies + + + +--------+ + | Active Allergy | Reactions | Severity | Noted | Comments | | | | | Date | | + + + +--------+ + | Iodine | | | | | + + + +--------+ + Medications + + + +---------+------+------+-------+ | Medication | Sig | Dispensed | Refills | Star | End | Statu | | | | | | t | Date | s | | | | | | Date | | | + + + +---------+------+------+-------+ | ibuprofen | Take 600 mg by mouth | | 0 | 08/ | | Activ | | (ADVIL,MOTRIN) 600 | 3 times daily as | | | 08/09 | | e | | MG tablet | needed. | | | 10 | | | + + + +---------+------+------+-------+ | Norethin Christophe-Eth | TABS | | 0 | 07/21 | | Activ | | Estrad-FE | | | | 03/09 | | e | | (MICROGESTIN FE 12/09 | | | | 12 | | | | PO) | | | | | | | + + + +---------+------+------+-------+ Active Problems + + + | Problem | Noted Date | + + + | KNEE PAIN, RIGHT | | + + + | INTERNAL DERANGEMENT, RIGHT KNEE | | + + + | LATERAL MENISCUS TEAR, RIGHT | | + + + | OTHER TEAR CARTILAGE OR MENISCUS KNEE CURRENT | | + + + Social History + [...] recent travel history available. | + + Last Filed Vital Signs + + + [...] | | + + + + + Plan of Treatment + + + + + | Health Maintenance | Due Date | Last Done | Comments | + + + + + | Vaccine: | | | | | Dtap/Tdap/Td (1 - | 9 | | | | Tdap) | | [...]
--- OUTSIDE RECORDS SUMMARY | ~2020-03-29 | XMS | Clinical Summary ---
Demographics + + + | Address | [address] | | | [place] [address] | + + + | Home Phone | | + + + | Preferred Language | Unknown | + + + | Marital Status | Single | + + + | Yazidi Affiliation | Unknown | + + + | Race | Unknown | + + + | Ethnic Group | Unknown | + + + Author + + + | Author | [facility] | | | and Jorge[place] | + + + | Organization | [facility] | | | and [...] Team Providers + +------+ + | Care Board Catcher Name | Role | Phone | + [...]
--- OUTSIDE RECORDS SUMMARY | ~2020-03-29 | XMS | Encounter Summary ---
Demographics + + + | Address | [address] | | | [place] [address] | + + + | Home Phone | | + + + | Preferred Language | Unknown | + + + | Marital Status | Single | + + + | Confucianist Affiliation | Unknown | + + + | Race | Unknown | + + + | Ethnic Group | Unknown | + + + Author + + + | Author | [facility] | | | and [place] | + + + | Organization | [facility] | | | and [place] | [...] Team Providers + +------+ + | Care Street Sprinkler Name | Role | Phone | + +------+ + PCP | Unavailable | + +------+ + Encounter Details +--------+ + + + + | Date | Type | Department | Care Team | Description | +--------+ + + + + | 10/26/ | Hospital | [facility] | [place] | | | 2010 | Encounter | MED CTR MP INTRA OP | [address] [facility] | | | | | [address] | [place] | | | | | [place] | [address] | | | | | [address] | | | | | | [phone] | | | +--------+ + + + [...]
--- OUTSIDE RECORDS SUMMARY | ~2020-03-29 | XMS | Encounter Summary ---
Demographics + + + | Address | [address] | | | [place] [address] | + + + | Home Phone | | + + + | Preferred Language | Unknown | + + + | Marital Status | Single | + + + | Orthodox Affiliation | Unknown | + + + | Race | Unknown | + + + | Ethnic Group | Unknown | + + + Author + + + | Author | [facility] | | | and [place] | + + + | Organization | [facility] | | | and [place] [...] Team Providers + +------+ + | Care Bag Printer Name | Role | Phone | + [...] | | | | | [address] | | | | | | [place], [place] | | | | | | [address] | | | | | | [phone] | | | +--------+ + + + [...]
[2020-03-29] MEDS ORDERED: NORCO 7.5-3251 EACH PO (19:03)
[2020-03-29] MEDS ORDERED: ONDANSETRON ODT8 MG PO (19:26)
== END 2020-03-29 19:40 | disposition home or self-care (01) ==
LOC: ED 15:26
DX: S63.502A Unspecified sprain of left wrist, initial encounter (principal); S30.1XXA Contusion of abdominal wall, initial encounter; S70.02XA Contusion of left hip, initial encounter; Z91.041 Radiographic dye allergy status; V89.2XXA Person injured in unspecified motor-vehicle accident, traffic, initial encounter
CPT/HCPCS: 71045; 73110; 74177; 80053; 81001; 85025; 90471; 90715; 96376; 99284-25; A9270; J1170; J7030

== ENCOUNTER 2025-07-31 22:58 | Emergency (ER) | payer OTHER ==
[~2025-07-31] VITALS: Ht 170.2 cm; Wt 95.0 kg
[~2025-07-31 22:58] MED LIST changes: +NORCO 7.5-3251 EACH PO; +ONDANSETRON ODT8 MG PO
[2025-08-01 00:57] VITALS: BP 135/82
== END 2025-08-01 01:11 | disposition home or self-care (01) ==
LOC: ED 22:58
DX: S93.401A Sprain of unspecified ligament of right ankle, initial encounter (principal); X50.1XXA Overexertion from prolonged static or awkward postures, initial encounter; Z88.8 Allergy status to other drugs, medicaments and biological substances; Z79.899 Other long term (current) drug therapy
CPT/HCPCS: 73610; 99283